=== PATIENT | male | born 1930 | race Caucasian/White ===

== ENCOUNTER 2018-10-28 16:12 | Inpatient (IN) | payer MEDICARE ==
[~2018-10-28] VITALS: Ht 175.3 cm; Wt 69.7 kg
[2018-10-28 15:29] VITALS: BP 165/77
[~2018-10-28 16:12] MED LIST: ATENOLOL50 MG PO; FERROUS SULFAT325 MG PO; LISINOPRIL10 MG PO; SERTRALINE HCL50 MG PO; SIMVASTATIN40 MG PO; VITAMIN D350000 UNIT PO
[2018-10-28] MEDS ORDERED: ONDANSETRON HCL INJ 2MG/ML 2ML 2 MG/ML VIAL IV PRN (16:30)
[2018-10-28] MEDS ORDERED: ACETAMINOPHEN 325 MG TAB PO PRN (16:30)
[2018-10-28] MEDS ORDERED: ALBUTEROL/IPRATROPIUM 3 ML NEB NEB PRN (16:30)
[2018-10-28] MEDS ORDERED: FUROSEMIDE INJ 10 MG/ML 4 ML VIAL IV ONE (16:30)
[2018-10-28] MEDS ORDERED: HYDRALAZINE HCL 20 MG/ML VIAL IV PRN (16:30)
[2018-10-28] MEDS ORDERED: MIRTAZAPINE15 MG PO (16:40)
[2018-10-28] MEDS ORDERED: LOSARTAN POTASS25 MG PO (16:40)
[2018-10-28] MEDS ORDERED: AMLODIPINE BESYL5 MG PO (16:40)
[2018-10-28] MEDS ORDERED: ASPIR 8181 MG PO (16:40)
--- NOTE | 2018-10-28 16:40 | NUR ---
RECEIVED PT TO FLOOR AA0X3. PT IS IN NO S.S OF DISTRESS. DENIES PAIN. PT V/S HOWEVER NOTED A HR OF 36. PLACED PT ON TELEMETRY. ONCE PLACED PT READ SR WITH OCCASIONAL PVCS. CALLED MD CASAS REGARDING FINDINGS AND PT ADMISSION TO FLOOR. ORDERS RECEIVED. WITH ORDERS GIVEN WAS A CARDIOLOGY CONSULT WITH MD HECTOR, PAGED AT THIS TIME. PT HAS A RIGHT AC 20 SL , ON RA SATURATING IN THE HIGH 90S. FAMILY IS AT THE BEDSIDE. WILL COMPLETE ASSESSMENT AT THIS TIME. INSTRUCTED PT OF PLAN OF CARE UPON ADMISSION. INSTRUCTED TO CALL FOR ASSISTANCE IF NEEDED
[2018-10-28 16:42] VITALS: BP 165/77
--- NOTE | 2018-10-28 17:00 | NUR ---
MD VO ROUNDED ON PT. AWARE OF PT NEW TELEMETRY RHYTHM OF A FIB WITH A HR RUNNING IN THE 60S. PT AGREED WITH ORDERS PUT IN BY MD CASAS. STATES ONCE TESTS ARE PERFORMED , PT CAN BE EVALUATED A LITTLE BETTER. WILL CONTINUE TO CARE FOR PT AT THIS TIME
--- NOTE | 2018-10-28 17:01 | NUR ---
SPOKE WITH MD CASAS REGARDING ORDERS ON VQ SCAN . STATES THIS TEST CAN BE DONE TOMORROW [facility]. STATES THIS TEST WILL BE DONE FIRST THING IN THE MORNING AND TO PLACE PT NPO AND MIDNIGHT FOR PROCEDURE
--- NOTE | 2018-10-28 19:24 | Consultation ---
DATE OF CONSULTATION: October 28, 2018 CARDIAC CONSULTATION REASON FOR THE CONSULTATION: Severe shortness of breath, also paroxysmal nocturnal dyspnea, constipation, debility, weakness, and atrial fibrillation with slow ventricular response, frequent PVCs, elevated D-dimer. HISTORY: Pprzev-ngskh-ytkn-old gentleman who is known with coronary artery disease. He had coronary artery bypass surgery in 1998 for two vessels. Subsequently patient had prostate cancer and he needed to have seed implantation done by Dr. Lainez. Patient since that time having a problem with his urine. He needs to go several times to the bathroom. Other than that, he is relatively active. For the last few months his level of exercise tolerance seems to be dwindling. However, he was still functional. For the last two days he started having more formed stool and constipation. He noted the bloating, indigestion and shortness of breath. He needs to sit in a recliner because "he cannot breathe." He did have cough. He thought he was having pneumonia and upper respiratory tract infection. He came to the emergency room. He was in atrial fibrillation with slow ventricular response with PVCs. His BNP was 575. His D-dimer elevated. His first troponin is normal. His creatinine at 1.9. Admitted for further management. REVIEW OF SYSTEMS: Patient visited, long visit. Review of systems was extensive. GENERAL: Failure to thrive, no fever, no chills. HEENT: Congestion. PULMONARY: Shortness of breath, orthopnea, cough. No pleuritic chest pain. No feet swelling. CARDIAC: No angina. Easy fatigability, orthopnea, palpitation. No syncope or presyncope. No angina. Class III shortness of breath progressing to Class IV shortness of breath. GI: Constipation. : Increased frequency of urination and quantity and nocturia. HEMATOLOGICAL: Easy bruising but no bleeding. NEUROMUSCULAR: There is pain right knee and back pain. ENDOCRINE: Diabetes mellitus, diet-controlled. HOME MEDICATIONS: Include 1. Atenolol 50 mg a day. 2. Losartan 25 mg a day. 3. Zocor 40 mg a day. 4. Vitamin D3. 5. Iron sulfate. 6. Amlodipine 5 mg a day. 7. Aspirin 81 mg a day. 8. Mirtazapine 15 mg a day. 9. Vitamin B12 and D3. ALLERGIES: NONE. PAST MEDICAL HISTORY 1. Coronary artery bypass surgery in 1998 for two vessels. 2. Prostate cancer status post radiation with seed implantation. 3. Hypertension. 4. Diabetes mellitus, diet-controlled. 5. Cholecystectomy. 6. Chronic right knee pain. 7. Left inguinal hernia surgery. 8. 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 FAMILY HISTORY: Father of congestive heart failure at the age 86. Mother of old age at the age of 96. He lost his full-brother to coronary artery disease, and he had bypass surgery. His full-sister of colon cancer at the age 77. He does have three half-brothers and one half-sister. He had four children, three healthy daughters and he lost a son to an accident. PHYSICAL EXAMINATION VITAL SIGNS: Height of 5 feet 9 inches, weight of 164 pounds, blood pressure 160/70, heart rate of 60, respiratory rate of 18, afebrile. HEENT: Decreased hearing is noted. NECK: No elevation of jugular venous pulsation. CHEST: Decreased air entry with crackles. HEART: PMI 5th left intercostal space. Irregular heart rate. Normal 1st and 2nd heart sounds. Ejection systolic murmur. ABDOMEN: Soft. Liver edge is palpable. No abdominal bruits. EXTREMITIES: No cyanosis, no clubbing, no edema. NEUROLOGIC: Awake, alert, oriented. Neck is supple. No gross deficits. LAB DATA: EKG showing atrial fibrillation, diffuse ST changes, PVCs. BNP of 575. White blood cell count of 6.6, hemoglobin of 14.2, hematocrit 42%, platelet count of 262,000. Creatinine of 1.9. IMPRESSION AND PLAN 1. New-onset congestive heart failure. 2. Atrial fibrillation with slow ventricular response. 3. Coronary artery bypass surgery in 1998. Most likely all the bypasses are closed. 4. Chronic renal insufficiency. 5. Limited activity and debility. 6. Elevated D-dimer. Cardiac-duran the recommendation will be as follows. Serial cardiac enzymes. Keeping patient on telemetry. Observing him off atenolol and losartan. Continuation of aspirin, deep venous thrombosis prophylaxis. A V/Q scan ordered, which I concur with. An echocardiogram and serial cardiac enzymes will be helpful. It is plausible patient having chronic heart failure and advanced coronary artery disease and the atrial fibrillation caused worsening of his presentation. Definitely he does have conduction abnormality since his heart rate is slow on relatively very small dose of atenolol. Patient poses multiple medical complex risk problems. Prognosis is guarded at this time-point pending the results of initial investigation. Case discussed with the patient and his daughter, case discussed with the staff. Orders written. Time taking care of the patient greater than 80 minutes. Job#: [id number] EV
[2018-10-28 20:00] VITALS: BP 138/62
[2018-10-28] MEDS: MIRTAZAPINE 15 MG TAB PO SCH (20:38)
[2018-10-28] MEDS: SIMVASTATIN 20 MG TAB PO SCH (20:38)
[2018-10-28] MEDS ORDERED: SIMVASTATIN 40 MG TAB PO SCH (21:00)
[2018-10-28 23:00] VITALS: BP 123/57
[2018-10-29] VITALS (7 sets, daily range): BP systolic 111–154; BP diastolic 53–72
[2018-10-29 06:22] LABS: BASOPHILS % 0.6 % (0.0-1.0); EOSINOPHILS # (AUTO) 0.2 (0.0-0.4); EOSINOPHILS % 2.7 % (0.0-6.0); HEMATOCRIT 45.9 % (38.2-49.6); HEMOGLOBIN 14.6 g/dL (14.0-18.0); LYMPHOCYTES # (AUTO) 1.9 (1.0-3.2); LYMPHOCYTES % 26.3 % (18.0-39.1); MEAN CORPUSCULAR HGB CONC 31.8 g/dL (31-35); MONOCYTES % 14.6 % (4.4-11.3); NEUTROPHILS # (AUTO) 3.9 (2.1-6.9); NEUTROPHILS % 55.5 % (38.7-80.0); PLATELET COUNT 254 x10e3/uL (140-360); RED CELL DISTRIBUTION WIDTH 14.5 % (11.7-14.4)
--- NOTE | 2018-10-29 06:42 | Diagnostic Imaging Report ---
EXAMINATION: CHEST 2 VIEWS INDICATION: Shortness of breath COMPARISON: None FINDINGS: PA and lateral views TUBES and LINES: None. LUNGS: Lungs are well inflated. Lungs are clear. There is no evidence of pneumonia or pulmonary edema. PLEURA: No pleural effusion or pneumothorax. HEART AND MEDIASTINUM: Tortuous aorta. Aortic calcifications. The cardiomediastinal silhouette is otherwise unremarkable. BONES AND SOFT TISSUES: No acute osseous lesion. Median sternotomy wires. The third wire is broken. Soft tissues are unremarkable. UPPER ABDOMEN: No free air under the diaphragm. IMPRESSION: No acute thoracic abnormality. Signed by: DR. Júnior Anderson MD on 10/29/2018 6:39 AM
[2018-10-29 06:56] LABS: B-TYPE NATRIURETIC PEPTIDE2 778.4 pg/mL (0-100)
[2018-10-29 06:58] LABS: ALBUMIN 3.8 g/dL (3.5-5.0); ALBUMIN/GLOBULIN RATIO 1.1 (0.8-2.0); ANION GAP 15.6 mmol/L (8-16); CHOL/HDL RATIO 3.8 (3.9-4.7); CREATININE, SERUM 2.08 mg/dL (0.72-1.25); POTASSIUM 4.6 mmol/L (3.5-5.1)
[2018-10-29 07:06] LABS: THYROID STIMULATING HORMONE 1.839 uIU/mL (0.350-4.940)
--- NOTE | 2018-10-29 07:17 | NUR ---
pt resting in bed. no c/o pain or s/s distress at this time. will continue to monitor.
[2018-10-29] MEDS ORDERED: NON-FORMULARY MEDICATION (Cholecalciferol (Vitamin D3) (Vitamin D3) 2,000 UNITS) PO SCH (09:00)
[2018-10-29] MEDS: AMLODIPINE BESYLATE 5 MG TAB PO SCH (09:24)
[2018-10-29] MEDS: CHOLECALCIFEROL 1,000 UNIT TAB PO SCH (09:24)
[2018-10-29] MEDS: ASPIRIN 81 MG CHEW TAB PO SCH (09:24)
--- NOTE | 2018-10-29 10:58 | History and Physical ---
CHIEF COMPLAINT: Shortness of breath. HISTORY OF PRESENT ILLNESS: This is an 88-year-old male with known history of CAD. Had CABG in 1998, two vessels. Also has a history of prostate cancer. He presented from an outside ER due to complaints of onset of shortness of breath that began yesterday morning. Yesterday he reports that he woke up, was walking, was very short of breath. He denied any chest pain or palpitations. He does endorse that he was very constipated, which likely led to his underlying shortness of breath. While there at the ER, he was found to be in AFib with slow ventricular response and had an elevated D-dimer. He was brought into [facility] for further evaluation and management. Patient was seen and evaluated at bedside on the medical floor, currently doing well with no other issues at this time. He is currently not short of breath at this time. He had a bowel movement with no issues. There are several imaging studies still pending. REVIEW OF SYSTEMS PERTINENT POSITIVE: Shortness of breath. PERTINENT NEGATIVES: Denies any chest pain, palpitations, nausea, vomiting, diarrhea, dysuria, hematuria, frequency, urgency, lightheadedness, dizziness, abdominal pain, headache, cough, congestion, fever or any other complaints. The rest of the 14-point review of systems are reviewed with the patient and are negative. ALLERGIES: NONE. HOME MEDICATIONS 1. Atenolol 50 mg daily. 2. Losartan 25 mg daily. 3. Zocor 40 mg daily. 4. Iron. 5. Vitamin D3. 6. Amlodipine 5 mg daily. 7. Aspirin 81 mg daily. 8. Mirtazapine 15 mg daily. 9. Vitamin B12 and D3. PAST MEDICAL HISTORY: Had 2-vessel CABG back in 1998. Prostate cancer with radiation and seed implementation. Hypertension, type-2 diabetes, cholecystectomy, chronic right knee pain with severe degenerative joint disease, left inguinal hernia repair. SURGICAL HISTORY: Had a left inguinal hernia surgery. He also had a CABG, 2 vessels, back in 1998. FAMILY HISTORY: Hypertension and diabetes. SOCIAL HISTORY: No drugs. No alcohol. Does not smoke. Good social support. VITAL SIGNS: Temperature 96.1, pulse 63, respiratory rate 17, blood pressure 145/60, pulse ox 97% on room air. LAB FINDINGS: White count is 7, hemoglobin 14.6, hematocrit 45.9, platelets of 254. Chemistries: Sodium 137, potassium 4.6, chloride 103, bicarb 23, anion gap 15, BUN 31, creatinine 2.08. Calcium is 10. LFTs were normal. Troponins were negative. BNP 778. Albumin was 3.8. LDL 89. TSH is 1.8. MICROBIOLOGY: None. IMAGING STUDIES: Chest x-ray was found to be negative. PHYSICAL EXAMINATION GENERAL: Not in acute distress. Alert and oriented x3. Cooperative on examination. HEENT: Head is normocephalic, atraumatic. Eyes: Pupils are equal and reactive to light bilaterally. The extraocular movements are intact bilaterally. NECK: Supple. Good range of motion throughout. No evidence of any erythema or exudates in the posterior pharynx. Has poor dentition. PULMONARY: Clear to auscultation bilaterally. No wheezing, rales or rhonchi. No crackles appreciated. CARDIOVASCULAR: Positive S1 and S2. No murmurs, rubs, or gallops appreciated. ABDOMEN: Soft, nondistended, and nontender to palpation. Bowel sounds are present. MUSCULOSKELETAL: Strength is 5/5 throughout. No evidence of any musculoskeletal deficits on examination. No weakness appreciated. NEUROLOGICAL: Cranial nerves II through XII are grossly intact. No evidence of any neurological deficits on exam. SKIN: Intact. Warm to touch. Good cap refill. PSYCHIATRIC: Normal affect and mood. EXTREMITIES: No edema. Good range of motion throughout. IMPRESSION 1. Respiratory distress secondary to new-onset congestive heart failure, unknown dysfunction. 2. Atrial fibrillation with slow ventricular response. 3. History of 2-vessel coronary artery bypass graft in the past with coronary artery disease. 4. Wqndd-mg-ozomjnk kidney disease, stage 4. 5. Chronic right knee pain. 6. Elevated D-dimer. PLAN: At this time, cardiology was consulted. Has a 2D echo pending. I will also order an abdominal ultrasound to rule out any kind of intra-abdominal process. There is a V/Q scan pending for today. Will continue the same home medications. He is on cardioprotective meds including Lovenox for DVT prophylaxis. Get a.m. labs, CBC and BMP. Lovenox for DVT prophylaxis. I discussed the overall plan of care with the patient and the family at bedside. Job#: [id number]
--- NOTE | 2018-10-29 12:39 | NUR ---
pt family member visiting, family concerned of visitors health dt sudden behavior. offered to take visitor to ER via [facility]. pt stated he has hx of seizures and 'this is normal'. family called other members to confirm. assistance refused.
--- NOTE | 2018-10-29 13:07 | NUR ---
SOCIAL WORK INITIAL ASSESSMENT Hydroelectric Production Technician to bedside to discuss plan of care with patient/family. CM/SW role and care transitions discussed. Anticipated discharge plan discussed along with duration of care. CM/SW discussed patients right to make decisions in care. CM/SW work hours given. Patient lives: IN HOUSE BY SELF Admit/Transfer: VIA ED POA/Emergency contact: YAKELIN PITTMAN [phone] [place] [phone] Current/Previous Home Health: NONE PCP/Follow-up Care: TARIK Current/Previous DME: NONE Other Services: NONE Employment Status: RETIRED Areas of Concerns: NONE Referral Needs: NONE Education Needs: NONE IMM/MÉNDEZ given and signed (if applicable): UPON ADMISSION Goal for discharge: RETURN HOME CM/SW left business card at the bedside with contact information. Name and number was also written on the patients whiteboard. Patient verbalized understanding of discussion. CM will follow-up with ongoing discharge and transition of care needs.
--- NOTE | 2018-10-29 13:30 | Diagnostic Imaging Report ---
Ventilation/perfusion lung scan Clinical Information:88 M with atrial fibrillation and intermittent SOB Comparison: Chest radiograph 10/29/2018 Discussion: Xenon-133 gas 10.5 mCi was administered via inhalation. Dynamic images of the lungs in the posterior projection were obtained through single breath, equilibrium, and washout phases. Distribution of tracer activity is irregular throughout the lungs. There are no segmental ventilatory defects. Washout of tracer is mildly delayed with scattered areas of air trapping. Perfusion images of the lungs were obtained in multiple projections following intravenous administration of approximately 6.0 mCi of Tc-99m MAA. Distribution of tracer is irregular throughout the lungs. The contours of the lungs are well demarcated. There are no segmental perfusion defects of any size. The cardiomediastinal silhouette is unremarkable. Impression: Scan findings represent a VERY LOW probability for acute pulmonary embolic disease based on the PIOPED II criteria. Scan evidence of obstructive lung disease. Signed by: Dr. Ivette Hansen M.D. on 10/29/2018 1:26 PM
--- NOTE | 2018-10-29 13:50 | NUR ---
Visit made by the Spiritual Care Department Pastoral Visitor, Kourtney Alegria. Pt out of room and no family at bedside. A card was left at the bedside to indicate a missed visit from a member of the Spiritual Care team and to inform the pt and family of the availability of a Velocity Shooter 24 hours a day/7 days a week. A head insulation board saw operator will follow up as able. FLORES GRAHAM Velocity Shooter Spiritual Care Department O: [phone] Pager: [phone] ([phone] number calling from)
--- NOTE | 2018-10-29 14:22 | NUR ---
Nutrition Screen Note RD Recommendation for Physician: -Rec adding ADA to current cardiac diet Plan of Care: RD following, monitoring for tolerance and adequacy Nutrition reason for involvement: Nutrition Risk Trigger MST Primary Diagnose(s): 1. New-onset congestive heart failure. 2. Atrial fibrillation with slow ventricular response. PMH: CAD, prostate cancer, HTN, DM Ht: 69in Wt: 164lb BMI: 24.2kg/m2 IBW: 160lb RD Assessment: (10/29) Chart reviewed. Labs and meds reviewed. 88yo M, who is admitted for SOB. Visited pt in room who denied significant wt loss, denied decrease in appetite INSET CUTTER. Pt denied chewing/swallowing problems and nausea/vomiting. RN recorded 100% meal intake. LBM 10/29. Will cont to monitor. Please consult as needed. Current Diet: Cardiac diet Malnutrition Evaluation (10/29/18) The patient does not meet criteria for a specified degree of malnutrition at this time. Will re-evaluate at follow-up as appropriate. Diet Education Needs Assessment: Diet education not indicated. Nutrition Care Level: low Signed: Ashlee Bazzi, , RD, LD
--- NOTE | 2018-10-29 15:43 | Diagnostic Imaging Report ---
Examination: Limited abdominal ultrasound, aorta Clinical indication: New onset atrial fibrillation, concern for abdominal aortic aneurysm. Technique: Multiple transverse and longitudinal sonographic images of the abdomen were obtained with supplemental color Doppler analysis. Findings: Dimensions of the abdominal aorta are as follows: Proximal segment: 1.4 x 1.5 cm Mid segment: 1.3 x 1.8 cm Distal segment: 1.2 x 1.5 cm. Color Doppler analysis shows normal expected flow in the abdominal aorta. Impression: No sonographic evidence of abdominal aortic aneurysm. Signed by: Dr. Kilo Larry M.D. on 10/29/2018 3:40 PM
[2018-10-29] MEDS ORDERED: ENOXAPARIN SOD INJ 40 MG/0.4 ML SYR SC SCH (17:00)
--- NOTE | 2018-10-29 19:10 | NUR ---
WALKING ROUNDS PERFORMED, RECEIVED PT LAYING SEMI FOWLERS IN BED, AAOX3, RR EVEN AND NON-LABORED, ON RA. NO S/SX OF DISTRESS NOTED. LEFT PT LAYING SEMI FOWLERS IN BED, BED IN LOW LOCKED POSITION, SIDE RAILS UPX2, CALL LIGHT AND PHONE WITHIN REACH.
[2018-10-29] MEDS: MIRTAZAPINE 15 MG TAB PO SCH (20:14)
[2018-10-29] MEDS: SIMVASTATIN 20 MG TAB PO SCH (20:14)
[2018-10-30] VITALS: BP 129/58
--- NOTE | 2018-10-30 00:23 | NUR ---
SPOKE WITH MD VO CONCERNING PT HEART RHYTHM FLIPPING BETWEEN AFIB AND SR AND HAVING FREQUENT PVC'S DURING BOTH. NO NEW ORDERS AT THIS TIME.
[2018-10-30 04:00] VITALS: BP 128/60
[2018-10-30 06:10] LABS: BASOPHILS % 0.3 % (0.0-1.0); EOSINOPHILS # (AUTO) 0.3 (0.0-0.4); EOSINOPHILS % 4.3 % (0.0-6.0); HEMATOCRIT 41.3 % (38.2-49.6); HEMOGLOBIN 13.7 g/dL (14.0-18.0); LYMPHOCYTES # (AUTO) 1.3 (1.0-3.2); LYMPHOCYTES % 22.2 % (18.0-39.1); MEAN CORPUSCULAR HEMOGLOBIN 27.5 pg (28-32); MEAN CORPUSCULAR HGB CONC 33.2 g/dL (31-35); MEAN CORPUSCULAR VOLUME 82.9 fL (81-99); NEUTROPHILS # (AUTO) 3.4 (2.1-6.9); NEUTROPHILS % 56.9 % (38.7-80.0); PLATELET COUNT 220 x10e3/uL (140-360); RED BLOOD COUNT 4.98 x10e6/uL (4.3-5.7); RED CELL DISTRIBUTION WIDTH 14.5 % (11.7-14.4)
[2018-10-30 06:44] LABS: ANION GAP 12.8 mmol/L (8-16); CALCIUM 8.9 mg/dL (8.4-10.2); CREATININE, SERUM 2.1 mg/dL (0.72-1.25); POTASSIUM 3.8 mmol/L (3.5-5.1)
--- NOTE | 2018-10-30 07:16 | NUR ---
Rcvd patient in report this am. Patient is asleep in bed at this time. No s/s of distress noted
[2018-10-30 07:47] VITALS: BP 125/60
[2018-10-30] MEDS: CHOLECALCIFEROL 1,000 UNIT TAB PO SCH (08:11)
[2018-10-30] MEDS: ASPIRIN 81 MG CHEW TAB PO SCH (08:11)
[2018-10-30] MEDS: AMLODIPINE BESYLATE 5 MG TAB PO SCH (08:11)
--- NOTE | 2018-10-30 08:46 | NUR ---
IMM EXPLAINED SIGNED AND ON CHART COPY TO PT IN CARE TRANSITION FOLDER
[2018-10-30] MEDS ORDERED: APIXAB 2.5 MG TABLET PO SCH (09:00)
[2018-10-30] MEDS ORDERED: FUROSEMIDE 40 MG TAB PO SCH (09:00)
[2018-10-30 10:14] VITALS: BP 125/60
--- NOTE | 2018-10-30 11:00 | NUR ---
Patient is AAOx3. Patient lung peres clear to auscultation. Bowel sounds present x4. Patient ambulates on his own. No c/o pain. NO shortness of breath noted. Patient remains in Afib at this time. No c/o chest pain.
[2018-10-30 11:56] VITALS: BP 155/61
--- NOTE | 2018-10-30 13:50 | NUR ---
Patient discharged from facility to home. Patient assisted out via staff in wheelchair. Reviewed all discharge paperwork, RX's reviewed and follow up appts reviewed. Daughter at bedside. No questions noted at this time.
--- NOTE | 2018-10-30 16:36 | Discharge Summary ---
FINAL DISCHARGE DIAGNOSES 1. Respiratory distress secondary to underlying pulmonary edema, now resolved. 2. Congestive heart failure with diastolic dysfunction, ejection fraction of 40% to 45%. 3. Atrial fibrillation with slow ventricular response. 4. History of 2-vessel coronary artery bypass graft in the past. 5. Atzqs-es-snbwvkn kidney disease, stage 3-4. 6. Chronic knee pain. 7. Negative ventilation and perfusion lung scan. CONSULTANTS: Cardiology. VITAL SIGNS: Temperature 96.3, pulse 67, respiratory rate 18, blood pressure 112/60, pulse ox 97% on room air. LABS: White count 6, hemoglobin 13.7, hematocrit 41, platelets 220. Chemistries: Sodium 135, potassium 3.8, chloride 105, bicarb 21, anion gap 12, BUN 32, creatinine 2.1. Hemoglobin A1c 6.2. Calcium is 8.9. LFTs were normal. BNP is 778. LDL is 89. TSH is 1.8. MICROBIOLOGY: None. IMAGING STUDIES: A 2-D echo showed EF of 40% to 45%. Had some diastolic dysfunction. Lower extremity venous Doppler negative for DVT. V/Q scan was negative, low probability for PE. Chest x-ray was negative and clear. Abdominal ultrasound showed no evidence of any AAA. HOSPITAL COURSE: This is an 88-year-old male, who came from an outside ER with complaints of shortness of breath acutely at home. The ER physician there was concerned for underlying PE and CHF. The patient was brought here for further management and care. While here, the patient was initiated on nasal cannula, but improved after given IV diuretics. V/Q scan was negative for PE and had low probability. Cardiac enzymes were trended and found to be negative. A 2-D echo showed an EF of 40% to 45%. Cardiology was consulted as well. Lower extremity venous Doppler was negative for DVT. On discharge, patient was doing well with no other complaints. He was also found to have atrial fibrillation with slow ventricular rate on EKG, for which the patient was started on rate-control medications and oral Eliquis. He will be discharged with oral Eliquis and rate-control medications per cardiology. On discharge, patient was back to normal baseline, ambulating with no complaints, and had no other shortness breath on examination. On the day of discharge, the vital signs were stable. Labs were reviewed and stable. Patient was seen, evaluated, and examined thoroughly on the day of discharge with no other complaints. Patient verbalized understanding and agrees with plan of care, to follow up accordingly as an outpatient with his primary care physician in 1 week and with veterinary microbiologist in 2 weeks' time. MEDICATIONS: See med reconciliation form including Eliquis 2.5 mg p.o. b.i.d. and aspirin 81 mg daily. DISPOSITION: To home. CONDITION: Stable. DIET: Heart healthy. In the event of any worsening symptoms, patient advised to come back to the ED for further evaluation. Discharge summary took greater than 35 minutes. ZOE CASAS MD Job#: [id number]
== END 2018-10-30 13:42 | disposition home or self-care (01) | DRG 291 ==
LOC: MED/SURG 16:12
PROVIDERS: ADMIT Internal Medicine; ATTEND Internal Medicine
DX: I13.0 Hypertensive heart and chronic kidney disease with heart failure and stage 1 through stage 4 chronic kidney disease, or unspecified chronic kidney disease (principal); I50.31 Acute diastolic (congestive) heart failure; N18.4 Chronic kidney disease, stage 4 (severe); N17.9 Acute kidney failure, unspecified; I48.91 Unspecified atrial fibrillation; Z79.01 Long term (current) use of anticoagulants; G89.29 Other chronic pain; I25.10 Atherosclerotic heart disease of native coronary artery without angina pectoris; Z95.1 Presence of aortocoronary bypass graft; I49.3 Ventricular premature depolarization; M47.9 Spondylosis, unspecified; M17.11 Unilateral primary osteoarthritis, right knee
CPT/HCPCS: 36415; 71046; 76770; 78582; 80048; 80053; 80061; 83036; 83880; 84443; 84484; 85025; 93306; 93970; A9540; A9558; J1650; J1940